=== PATIENT | female | born 1965 | race Caucasian/White ===

== ENCOUNTER 2017-01-12 00:59 | Emergency (ER) | payer SELFPAY ==
--- NOTE | 2017-01-12 07:07 | ER ---
ADMIT: 01/12/2017 RM/LOC: ER [facility] MR#: [id number] [facility] [address] [place], [place] [id number] [address] [facility] [address] [place] [address] Emergency Room Report SEX: F AGE: 51 : 1965 DATE: 01/12/2017 The patient is a 51-year-old female, complaining of toothache for the past 12 hours. Exam remarkable for nontoxic, afebrile, acutely uncomfortable female. Large caries and tenderness #13 tooth. Treated with superior alveolar block with complete relief of pain. Home with clindamycin 450 mg b.i.d. x10 days, first dose in department. Hydrocodone 5/325 #20 dispensed, 6 from Pyxis. Follow up dentist as soon as possible. Cristian Valentine MD/ fausto JOB #: [id number] CC: Cristian Valentine MD, Attending Physician Frankie Reed MD
== END 2017-01-12 02:00 | disposition home or self-care (01) ==
LOC: ER 00:59
PROC: 3E0T3BZ Introduction of Anesthetic Agent into Peripheral Nerves and Plexi, Percutaneous Approach (ICD-10-PCS; principal; 2017-01-12)
DX: K02.9 Dental caries, unspecified (principal); Z88.0 Allergy status to penicillin